=== PATIENT | female | born 1975 | race Caucasian/White ===

== ENCOUNTER → 2018-12-15 12:56 | Oncology outpatient (ONC) | payer OTHER, SELFPAY ==
[2018-12-15] MEDS: LEUPROLIDE DEPOT 11.25 MG SYR IM (13:44)
== END ==
PROVIDERS: PCP Family Medicine; Referring Provider Specialist; Visit Provider Specialist
DX: N80.9 Endometriosis, unspecified (principal)
CPT/HCPCS: 96372; J1950

== ENCOUNTER 2019-02-08 09:38 | Day surgery (SDC) | payer OTHER, SELFPAY ==
[2019-01-24 10:11] VITALS: BMI 22.6
[2019-02-08] VITALS (14 sets, daily range): BP systolic 90–111; BP diastolic 49–70; PULSE 56–84; RESP 8–98; TEMP 36.1–36.7; O2SAT 9–100; BMI 22.6
--- NOTE | 2019-02-08 | PATH_ITS ---
[facility] Accession Number: [id number] . 01 Material submitted: . FALLOPIAN TUBES/OVARY - BILATERAL FALLOPIAN TUBES AND OVARIES . 02 Diagnosis: Bilateral Fallopian Tubes and Ovaries, Bilateral Salpingo-oophorectomy: Ovaries x2 with benign follicular cysts (up to 1.0 cm in greatest dimension); negative for malignancy. Fallopian tubes x2 with no significant histomorphologic abnormality. [facility]/02/10/2019 . 02 Electronically signed: . Simona Rubio MD, Pathologist NPI- [id number] . 01 Gross description: . Received in formalin, labeled bilateral fallopian tubes and ovaries, are two ovaries (ovary #1-2.4 x 2.3 x 1.0 cm; ovary #2-2.5 x 1.7 x 1.3 cm) with attached fimbriated fallopian tubes (tube #1: length-5.5 cm, diameter-0.4 cm; tube #2: length-6.2 cm, diameter-0.5 cm). The ovaries have humphries-yellow smooth shiny bosselated and focally flat serosa and humphries-white solid cystic parenchyma with corpus albicans and corpus luteum identified. The cavities (0.3 cm-1.2 cm) contain clear colorless fluid. The linings are smooth and flat with no excrescences identified. The fallopian tubes have humphries-pink smooth shiny serosa and humphries unremarkable lumens. Section code: (A1) ovary #1, market survey representative serial sections; (A2) ovary #2, market survey representative serial sections; (A3) fallopian tube #1, market survey representative serial sections; (A4) fimbria #1, bivalved, entirely submitted; (A5) fallopian tube #2, market survey representative serial sections; (A6) fimbria #2, bivalved, entirely submitted. ([id number]) /MRV . 02 Pathologist provided ICD-10: Z00.01 . 02 CPT . 398536 Performed at: [facility] [address] [address], [place], [place] [id number] MD Cristian Zaman MD Phone: [phone] Performed at: 02 [facility] [address] [place], [place] [id number] MD Paige Crooks MD Phone: [phone]
[2019-02-08] MEDS: LACTATED RINGERS 1,000 ML 100 ML IV (10:14)
--- NOTE | 2019-02-08 10:25 | PM.PREOP ---
Pre-operative Note Interval Note History & Physical reviewed/Exam performed by Physician: Yes Changes to H&P: No
--- NOTE | 2019-02-08 11:24 | SUR.OPER ---
Lithotomy on padded OR bed, head on pillow, arms secured on padded arm boards at <90 degrees abduction. Legs secured in padded yellow fins stirrups.
[2019-02-08] MEDS: BUPIVACAINE 0.5% W/ EPI (PF) VIAL 30 ML INJ (11:35)
[2019-02-08] MEDS: fentaNYL 100 MCG/2 ML INJ 50 MCG IV (12:07)
--- NOTE | 2019-02-08 12:07 | P.OP_ITS ---
Operative Date/Time/Diagnoses Date of procedure: 02/08/19 Time of procedure: 11:58 Pre-op diagnosis: Annual endometriosis with pelvic pain Post-op diagnosis: same Procedure & Clinicians Procedure: Laparoscopic BSO Same procedure as scheduled: Yes Indications: Patient with known endometriosis with increased pelvic pain and moodiness that markedly improved with Lupron who is requesting bilateral salpingo oophorectomy. Surgeon: Marisela Arnett Click Yes if Unassisted: Yes Anesthesia Type: General Operative Notes Findings: Normal tubes ovaries and uterus with areas of endometriosis on the left posterior broad ligament normal appearing appendix, liver edge, appendix, bowel surface. Closure Type: primary Specimen(s): other (Bilateral tubes and ovaries) Estimated Blood Loss (mL): 1 Blood products transfused: none Procedure in detail: Patient was brought to the operating room where she underwent general anesthesia. She was placed in low yellowfin stirrups and prepped and draped in usual sterile fashion. No antibiotics were indicated. Pulsatile stockings were in place and functional. Warming was with bear hugger. A check system was reviewed with the staff in the room prior to the beginning of the case. A single-tooth tenaculum was placed on the anterior lip of the cervix and the cervix dilated to #6 Hegar dilator. The Leah uterine manipulator was placed and balloon inflated with 3 mL of air. The area of the incisions were injected with half percent Marcaine with epinephrine. An incision was made in the umbilicus with a scalpel. The incision was dissected down to the fascial layer bluntly and the fascial layer was incised transversely. The fascia was held with 0 Vicryl suture x2. The perineum was entered bluntly and the his sign can was placed in the abdomen and the abdomen insufflated with CO2. There did not appear to be any damage with placement of the trocar. 2 other 5 mm trochars were placed in the right and left lower quadrant under direct visualization after incising the skin. There did not appear to be any damage with placement of the trocars. The right fallopian tube was grasped and the infundibulopelvic ligament was cauterized with the PK ligament and cut. Sequential bites taken along the broad ligament hugging the ovary. The utero-ovarian ligament and the junction of the tube to the uterus were cauterized allowing removal of the tube and ovary. The same procedure was performed on the other side. A Endo-Catch bag was placed down through the umbilical trocar. The tubes and ovaries were brought up out of the abdomen intact in the bag.. Adequate hemostasis was noted. The CO2 was allowed to escape from the abdomen. The trochars were removed. The umbilical fascia incision was closed with the prior placed 0 Vicryl suture. Skin was closed with 4-0 chromic by patient request. An exit re view of the case was performed prior to the patient going to the recovery room in good condition. Complications: none Condition: stable Disposition: same day surgery Plan for aftercare: Home when awake and stable
[2019-02-08] MEDS: LACTATED RINGERS 1,000 ML 125 ML IV (12:13)
[2019-02-08] MEDS: HYDROMORPHONE 2 MG INJ 0.25 MG IV ×2 (12:24→13:10)
[2019-02-08] MEDS: ONDANSETRON 4 MG/2 ML INJ IV (12:36)
[2019-02-08] MEDS: OXYCODONE/ACETAMINOPHEN 5/325 TABLET 1 TAB PO ×2 (13:26→13:56)
--- NOTE | 2019-02-08 13:58 | SUR.PHASEII ---
pt medicated for 3/10 pain in lower abdomen, abdominal dressings remain dry and intact, enrique pad with minimal drainage noted. pt tolerating crackers and juice.
== END 2019-02-08 14:24 | disposition home or self-care (01) ==
PROVIDERS: PCP Family Medicine; Visit Provider Specialist
PROC: 0UT24ZZ Resection of Bilateral Ovaries, Percutaneous Endoscopic Approach (ICD-10-PCS; CPT 58661; principal; 2019-02-08 10:45)
DX: N80.3 Endometriosis of pelvic peritoneum (principal); N83.02 Follicular cyst of left ovary; N83.01 Follicular cyst of right ovary
CPT/HCPCS: 58661; J1100; J1170; J2405; J2704; J3010